=== PATIENT | female | born 1960 | race Hispanic/Latino ===

== ENCOUNTER → 2017-07-26 | Outpatient (CLI) | payer MEDICARE, OTHER | END | disposition home or self-care (01) | LOC: RAH 13:52 | PROVIDERS: ATTEND Family Medicine | DX: N93.9 Abnormal uterine and vaginal bleeding, unspecified (principal) | CPT/HCPCS: 76830 ==

== ENCOUNTER → 2021-06-23 | Outpatient (CLI) | payer OTHER | LOC: RAH 19:31 | PROVIDERS: ATTEND Internal Medicine | DX: R11.2 Nausea with vomiting, unspecified (principal) | CPT/HCPCS: 78264; A9541 ==

== ENCOUNTER 2021-07-01 08:29 | Day surgery (SDC) | payer OTHER ==
[~2021-07-01] VITALS: Ht 165.1 cm; Wt 133.8 kg
[2021-07-01] VITALS (13 sets, daily range): BP systolic 123–138; BP diastolic 60–76
[2021-07-01] MEDS ORDERED: 0.9%NACL 1000ML 1,000 ML IV ONE ×2 (10:03→10:29)
[2021-07-01] MEDS ORDERED: MINE105O TP (10:19)
[2021-07-01] MEDS ORDERED: ASPI-1197 PO (10:19)
[2021-07-01] MEDS ORDERED: APIX2.5T PO (10:24)
[2021-07-01] MEDS ORDERED: METO10PO MC (10:24)
[2021-07-01] MEDS ORDERED: MIDO10TA PO (10:24)
[2021-07-01] MEDS ORDERED: POLY17PO4 PO (10:24)
[2021-07-01] MEDS ORDERED: PARO-37 PO (10:24)
[2021-07-01] MEDS ORDERED: [UNRECOGNIZED DRUG - CODE] MC (10:24)
[2021-07-01] MEDS ORDERED: LEVO112C4 PO (10:24)
[2021-07-01] MEDS ORDERED: PANT40TA55 PO (10:28)
[2021-07-01] MEDS ORDERED: SULF1TAB41 PO (10:28)
[2021-07-01] MEDS ORDERED: TRAZ-185 PO (10:28)
[2021-07-01] MEDS ORDERED: ROPI0.5T7 PO (10:28)
[2021-07-01] MEDS ORDERED: CEFAZOLIN SODIUM 1 GM VIAL ONE (10:32)
[2021-07-01] MEDS ORDERED: BUPIVACAINE/PF 0.25% 30ML VIAL IJ ONE (13:50)
[2021-07-01] MEDS ORDERED: PROPOFOL 10 MG/ML 20ML VIAL IV ONE (13:58)
[2021-07-01] MEDS ORDERED: FENTANYL CITRATE PF 50 MCG/1 ML 5ML AMP IV ONE (13:59)
[2021-07-01] MEDS ORDERED: ROCURONIUM 10MG/1ML SYR 10 MG/ML ML ONE (13:59)
[2021-07-01] MEDS ORDERED: KETAMINE 50MG/ML SYRINGE 50 MG/ML DISP.SYRIN IV ONE (14:11)
[2021-07-01] MEDS ORDERED: MIDAZOLAM HCL 1 MG/ML 2ML VIAL ONE (14:16)
[2021-07-01] MEDS ORDERED: EPHEDRINE SULFATE 50 MG/ML AMPULE ONE (14:49)
[2021-07-01] MEDS ORDERED: CEFAZOLIN SODIUM 1 GM VIAL IVP SCH (15:00)
[2021-07-01] MEDS ORDERED: BUPIVACAINE/EPI/PF 0.5% 30ML VIAL IJ ONE (15:28)
[2021-07-01] MEDS ORDERED: GLYCOPYRROLATE 1 MG/5 ML SYRINGE ONE (15:38)
[2021-07-01] MEDS ORDERED: NEOSTIGMINE 5MG/5ML SYR IV ONE (15:39)
== END 2021-07-01 17:24 | disposition home or self-care (01) ==
LOC: DAH 08:29
PROVIDERS: ATTEND Student in an Organized Health Care Education/Training Program
DX: Z46.59 Encounter for fitting and adjustment of other gastrointestinal appliance and device (principal); K31.84 Gastroparesis; G47.30 Sleep apnea, unspecified; E11.9 Type 2 diabetes mellitus without complications; E66.01 Morbid (severe) obesity due to excess calories; Z79.899 Other long term (current) drug therapy; Z98.890 Other specified postprocedural states
CPT/HCPCS: 49440; 74018; 82948 ×2; 87635; A4222; A4223; A4452; A4649 ×2; A4663; A6206; A7002; B4087; J0690; J2250; J2704; J2710; J3010; J3490 ×5; J7030 ×2

== ENCOUNTER 2021-07-11 19:07 | Emergency (ER) | payer MEDICARE, OTHER ==
[~2021-07-11] VITALS: Ht 152.4 cm; Wt 106.1 kg
[~2021-07-11 19:07] MED LIST: LEVO112C4 PO; METO10PO MC; MIDO10TA PO; MINE105O TP; PANT40TA55 PO; PARO-37 PO; POLY17PO4 PO; ROPI0.5T7 PO; SULF1TAB41 PO; TRAZ-185 PO; [UNRECOGNIZED DRUG - CODE] MC
[2021-07-11 19:19] VITALS: BP 154/83
[2021-07-11 19:49] LABS: BASOPHILS % (AUTO) 0.3 % (0.0-5.0); EOSINOPHILS % (AUTO) 6.8 % (0.0-8.0); HEMATOCRIT 21.8 % (36-48); MEAN CORPUSCULAR HEMOGLOBIN 29.6 pg (27.0-33.0); MEAN CORPUSCULAR HGB CONC 30.7 g/dL (32.0-36.0); MEAN CORPUSCULAR VOLUME 96.5 fL (79-99); MONOCYTES % (AUTO) 6.9 % (3.0-13.0); NEUTROPHILS % (AUTO) 57.6 % (40.0-77.0); PLATELET COUNT (AUTO) 353 K/uL (130-400); RED BLOOD CELL COUNT(AUTO) 2.26 MIL/uL (4.00-5.50); RED CELL DISTRIBUTION WIDTH 20.7 % (11.0-15.5)
[2021-07-11] MEDS ORDERED: 0.9% NACL 250ML 250 ML IV ONE (20:00)
[2021-07-11 20:05] LABS: CREATININE 0.9 mg/dL (0.5-1.5); POTASSIUM 3.7 mmol/L (3.5-5.1)
[2021-07-11 20:10] LABS: ALBUMIN 1.5 g/dL (3.5-5.0); TOTAL PROTEIN, SERUM 6.5 g/dL (6.0-8.3)
[2021-07-11] MEDS ORDERED: ONDANSETRON 4MG INJ ONE (20:21)
[2021-07-11] MEDS ORDERED: ONDANSETRON 4MG INJ IVP ONE (20:30)
[2021-07-11] MEDS ORDERED: IOHEXOL-350 75 ML VIAL IV ONE (20:59)
== END 2021-07-12 04:13 | disposition home or self-care (01) ==
LOC: EDH 19:07
DX: D64.9 Anemia, unspecified (principal); L76.22 Postprocedural hemorrhage of skin and subcutaneous tissue following other procedure; E11.9 Type 2 diabetes mellitus without complications; F41.9 Anxiety disorder, unspecified; I10 Essential (primary) hypertension; E86.0 Dehydration; J44.9 Chronic obstructive pulmonary disease, unspecified; Z79.899 Other long term (current) drug therapy; Z86.718 Personal history of other venous thrombosis and embolism
CPT/HCPCS: 36430; 99285; 80053; 85025; 86850; 86900; 86901; 86923; 87040 ×2; 83605; 36415; 74176; 96374; 96361; P9016; J2405; Q9967